=== PATIENT | male | born 1990 | race Caucasian/White ===

== ENCOUNTER → 2018-08-14 | Outpatient (CLI) | payer BC ==
--- NOTE | 2018-08-14 15:42 | XR ---
Left foot HISTORY: Pain in lateral aspect x1 month 3 views the left foot Bone mineralization, joint spaces and alignment are maintained. There is no fracture or dislocation. Soft tissues are within normal limits. impression: No significant abnormality is evident. Foot MRI may be of benefit.
== END | disposition home or self-care (01) ==
LOC: RADXRMAIN 14:00
PROVIDERS: ATTEND Physician Assistant
DX: M79.672 Pain in left foot (principal)